=== PATIENT | female | born 1970 | race African-American/Black ===

== ENCOUNTER → 2017-03-06 19:35 | Outpatient (CLI) | payer OTHER ==
[2010-10-16 09:06] VITALS: BMI 36.1
== END | disposition home or self-care (01) ==
LOC: D.SLEEP 02-11 20:00
DX: G47.33 Obstructive sleep apnea (adult) (pediatric) (principal)

== ENCOUNTER 2017-03-28 19:57 | Emergency (ER) | payer OTHER ==
[2010-10-16 09:06] VITALS: BMI 36.1
[2017-03-28 20:29] LABS: BASOPHILS 0.4 % (0-2); EOSINOPHILS 2.8 % (0-7); HEMATOCRIT 36.3 % (36.0-48.0); HEMOGLOBIN 12.9 g/dL (12-16); IMMATURE GRANULOCYTES 0.1 % (0-5); LYMPHOCYTES 46.8 % (15-50); MCH 32.6 pg (26.0-34.0); MCHC 35.5 g/dL (31.0-37.0); MCV 91.7 fL (80.0-100.0); MEAN PLATELET VOLUME 9.9 fL (7.4-10.4); NEUTROPHILS 43.9 % (40-80); PLATELET COUNT 291 10x3/uL (130-400); RBC 3.96 10x6/uL (4.00-5.40); RDW 12.4 % (11.5-14.5); WBC 6.7 10x3/uL (4.8-10.8)
[2017-03-28 21:08] LABS: ALBUMIN 3.5 g/dL (3.4-5.0); BILIRUBIN - TOTAL 0.38 mg/dL (0.2-1.3); CALCIUM 9.6 mg/dL (8.5-10.1); CARBON DIOXIDE 29.7 mmol/L (21.0-32.0); CREATININE - SERUM 1.1 mg/dL (0.6-1.3); POTASSIUM - SERUM 3.7 mmol/L (3.5-5.1); PROTEIN - SERUM 7.7 g/dL (6.4-8.2)
[2017-03-28 21:22] LABS: APPEARANCE CLEAR (CLEAR); BILIRUBIN NEGATIVE (NEGATIVE); COLOR YELLOW (YELLOW); GLUCOSE NEGATIVE (NEGATIVE); KETONE NEGATIVE (NEGATIVE); LEUKOCYTE ESTERASE NEGATIVE (NEGATIVE); NITRITE NEGATIVE (NEGATIVE); PROTEIN NEGATIVE (NEGATIVE); SPECIFIC GRAVITY 1.015 (1.005-1.020); UROBILINOGEN NORMAL (NORMAL)
== END 2017-03-28 21:48 | disposition home or self-care (01) ==
LOC: D.ER 19:57
PROVIDERS: Emergency Medicine
DX: M54.5 Low back pain (principal); F17.200 Nicotine dependence, unspecified, uncomplicated

== ENCOUNTER 2017-06-01 23:21 | Emergency (ER) | payer OTHER ==
[2010-10-16 09:06] VITALS: BMI 36.1
[2017-06-02 00:08] LABS: HEMATOCRIT 33.5 % (36.0-48.0); HEMOGLOBIN 11.7 g/dL (12-16); MCH 31.9 pg (26.0-34.0); MCHC 34.9 g/dL (31.0-37.0); MCV 91.3 fL (80.0-100.0); MEAN PLATELET VOLUME 9.2 fL (7.4-10.4); NEUTROPHILS 50.4 % (40-80); PLATELET COUNT 262 10x3/uL (130-400); RBC 3.67 10x6/uL (4.00-5.40); RDW 12.8 % (11.5-14.5); WBC 7.4 10x3/uL (4.8-10.8)
[2017-06-02 00:15] LABS: ALBUMIN 3.4 g/dL (3.4-5.0); ANION GAP 9.9 mmol/L (8-16); BILIRUBIN - TOTAL 0.52 mg/dL (0.2-1.3); CALCIUM 9.3 mg/dL (8.5-10.1); CARBON DIOXIDE 30.6 mmol/L (21.0-32.0); POTASSIUM - SERUM 3.5 mmol/L (3.5-5.1); PROTEIN - SERUM 7.2 g/dL (6.4-8.2)
[2017-07-24] MEDS ORDERED: BENTYL 20 MG TA20 MG PO (12:27)
[2017-07-24] MEDS ORDERED: CHLORTHALIDONE25 MG PO (12:27)
[2017-07-24] MEDS ORDERED: NORVASC10 MG PO (12:27)
[2017-07-24] MEDS ORDERED: LOTENSIN20 MG PO (12:27)
[2017-07-24] MEDS ORDERED: HCTZ25 MG PO (12:27)
[2017-07-24] MEDS ORDERED: PROAIR HFA8.5 GM INH (12:28)
[2017-07-24] MEDS ORDERED: SINGULAIR10 MG PO (12:28)
[2017-07-24] MEDS ORDERED: LOSARTAN POTASS25 MG PO (12:28)
[2017-07-24] MEDS ORDERED: QVAR8.7 G1 INH (12:28)
[2017-07-24] MEDS ORDERED: CELEXA40 MG PO (12:29)
[2017-07-24] MEDS ORDERED: SYNTHROID88 MCG PO (12:29)
[2017-07-25 07:16] VITALS: BMI 40.0
== END 2017-06-02 02:09 | disposition home or self-care (01) ==
LOC: D.ER 23:21
PROVIDERS: Physician Assistant Medical
DX: R10.9 Unspecified abdominal pain (principal)

== ENCOUNTER 2017-07-25 05:22 | Day surgery (SDC) | payer OTHER ==
[2017-07-24 13:14] LABS: HEMATOCRIT 36.3 % (36.0-48.0); HEMOGLOBIN 12.9 g/dL (12-16); MCH 32.5 pg (26.0-34.0); MCHC 35.5 g/dL (31.0-37.0); MCV 91.4 fL (80.0-100.0); MEAN PLATELET VOLUME 9.6 fL (7.4-10.4); RBC 3.97 10x6/uL (4.00-5.40); RDW 12.1 % (11.5-14.5); WBC 5.6 10x3/uL (4.8-10.8)
[~2017-07-25] VITALS: Ht 170.2 cm; Wt 115.7 kg
--- NOTE | ~2017-07-25 | OP ---
PATIENT NAME: JULIANA GUERRA MEDICAL RECORD: [id number] :66 LOCATION:[facility] ADMISSION DATE: SURGEON: MELONIE TERAN MD DATE OF OPERATION: 07/25/2017 PREOPERATIVE DIAGNOSES: Medial meniscus tear of the right knee and right hip, right hip pain. POSTOPERATIVE DIAGNOSIS: Medial meniscus tear of the right knee and right hip. PROCEDURE: 1. Arthroscopic partial medial meniscectomy of the right knee. 2. Fluoroscopic guided right hip injection. SURGEON: Melonie Teran MD ANESTHESIA: General. INTRAOPERATIVE COMPLICATIONS: None. SUMMARY OF PATHOLOGIC FINDINGS: Consistent with preoperative diagnosis. She has a complex tear of the posterior horn of medial meniscus. OPERATIVE SUMMARY IN DETAIL: After obtaining the appropriate preoperative orthopedic surgery consent as well as anesthetic consultation, evaluation, and clearance, the patient was brought to the operating room and placed on the operating table in supine position. After adequate general endotracheal anesthesia was administered, the right hip was prepped and draped in routine sterile fashion. Fluoroscopy was brought and under fluoroscopic guidance, the right hip was injected with little degree of difficulty. Having completed this, the patient's right lower extremity was prepared with tourniquet about the proximal aspect. The right lower extremity was then prepped and draped in routine sterile fashion. Leg was elevated and exsanguinated, tourniquet inflated to 350 mmHg. Routine inferolateral portal was established followed by superomedial portal and inferomedial portal. 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 Mild chondromalacia was seen in the medial compartment as well as the lateral compartment; however, the patient did have a complex tear of the posterior horn of medial meniscus. Combination of a meniscotome as well as a full radius resector were utilized to debride the medial meniscus back to stable meniscal elements with good residual meniscus. The leg was then placed in the [id number] position. The lateral compartment had only one area of minimal grade II chondromalacia. Having completed this, the knee was insufflated with 30 cc of 0.25% Marcaine with epinephrine and 40 mg of Depo-Medrol. Arthroscopy portals were closed in routine interrupted fashion using 4-0 Prolene. Sterile dressings were applied. The patient was awakened and taken to the recovery room in stable condition. All final needle and sponge counts were correct. TRANSINT:[id number] Voice Confirmation ID: [id number] DOCUMENT ID: [id number] OPERATIVE REPORT [id number] JULIANA GUERRA MD, MELONIE DEY at 1641 CC: [id number] DICTATION DATE: 07/25/17 1045 PLANT DIRECTOR: 07/25/17 1223 [facility] [place] [id number] [place] [id number]
[~2017-07-25 05:22] MED LIST: BENTYL 20 MG TA20 MG PO; CELEXA40 MG PO; CHLORTHALIDONE25 MG PO; HCTZ25 MG PO; LOSARTAN POTASS25 MG PO; LOTENSIN20 MG PO; NORVASC10 MG PO; PROAIR HFA8.5 GM INH; QVAR8.7 G1 INH; SINGULAIR10 MG PO; SYNTHROID88 MCG PO
[2017-07-25 07:16] VITALS: BP 159/95; Ht 170.2 cm; Wt 115.7 kg
[2017-07-25] MEDS ORDERED: HYDROCODONE-APA1 TAB PO (10:41)
== END 2017-07-25 16:30 | disposition home or self-care (01) ==
LOC: D.OPS 05:22 → D.PAN 09:15 → D.OPS 10:00 → D.PAN 10:30 → D.OPS 16:30
PROVIDERS: Anesthesiology
DX: S83.231A Complex tear of medial meniscus, current injury, right knee, initial encounter (principal); M25.551 Pain in right hip; Z01.812 Encounter for preprocedural laboratory examination; X58.XXXA Exposure to other specified factors, initial encounter

== ENCOUNTER 2018-05-15 07:57 | Emergency (ER) | payer OTHER ==
[~2018-05-15] VITALS: Ht 170.2 cm; Wt 113.6 kg
[~2018-05-15 07:57] MED LIST changes: +HYDROCODONE-APA1 TAB PO
[2018-05-15 08:02] VITALS: Ht 170.2 cm; Wt 113.6 kg
[2018-05-15 09:17] LABS: BASOPHILS 0.6 % (0-2); EOSINOPHILS 1.2 % (0-7); HEMATOCRIT 35.3 % (36.0-48.0); HEMOGLOBIN 12.4 g/dL (12-16); IMMATURE GRANULOCYTES 0.2 % (0-5); LYMPHOCYTES 41.5 % (15-50); MCH 32.5 pg (26.0-34.0); MCHC 35.1 g/dL (31.0-37.0); MCV 92.4 fL (80.0-100.0); MEAN PLATELET VOLUME 10.2 fL (7.4-10.4); MONOCYTES 7.6 % (2-11); NEUTROPHILS 48.9 % (40-80); PLATELET COUNT 254 10x3/uL (130-400); RBC 3.82 10x6/uL (4.00-5.40); RDW 12.5 % (11.5-14.5); WBC 4.8 10x3/uL (4.8-10.8)
[2018-05-15 09:31] LABS: ALBUMIN 3.5 g/dL (3.4-5.0); ANION GAP 10.3 mmol/L (8-16); BILIRUBIN - TOTAL 0.49 mg/dL (0.2-1.3); CALCIUM 9.1 mg/dL (8.5-10.1); CARBON DIOXIDE 29.9 mmol/L (21.0-32.0); POTASSIUM - SERUM 3.2 mmol/L (3.5-5.1); PROTEIN - SERUM 7.3 g/dL (6.4-8.2)
[2018-05-15] MEDS ORDERED: IBUPROFEN800 MG PO (12:29)
[2018-05-15] MEDS ORDERED: ACETAMINOPHEN500 M1 PO (12:29)
[2018-05-15] MEDS ORDERED: CYCLOBENZAPRINE10 MG PO (12:29)
[2018-05-15 13:09] VITALS: BP 135/64
== END 2018-05-15 13:13 | disposition home or self-care (01) ==
LOC: D.ER 07:57
PROVIDERS: Family Medicine
DX: M79.604 Pain in right leg (principal); E07.9 Disorder of thyroid, unspecified; I10 Essential (primary) hypertension

== ENCOUNTER 2019-07-04 15:55 | Emergency (ER) | payer BC ==
[~2019-07-04] VITALS: Ht 170.2 cm; Wt 112.7 kg
[~2019-07-04 15:55] MED LIST changes: +ACETAMINOPHEN500 M1 PO; +CYCLOBENZAPRINE10 MG PO; +IBUPROFEN800 MG PO
[2019-07-04 16:27] VITALS: Ht 170.2 cm; Wt 112.7 kg
[2019-07-04 19:06] VITALS: BP 153/90
== END 2019-07-04 19:07 | disposition home or self-care (01) ==
LOC: D.ER 15:55
DX: I10 Essential (primary) hypertension (principal); M79.672 Pain in left foot; G62.9 Polyneuropathy, unspecified; E07.9 Disorder of thyroid, unspecified

== ENCOUNTER → 2020-01-04 11:56 | Outpatient (CLI) | payer BC ==
[2019-07-04 16:27] VITALS: BMI 38.9
== END | disposition home or self-care (01) ==
LOC: D.LABREF 11:56
PROVIDERS: ATTEND Podiatrist
DX: Z11.59 Encounter for screening for other viral diseases (principal)

== ENCOUNTER 2020-01-06 06:10 | Day surgery (SDC) | payer BC ==
[2020-01-04 09:30] LABS: HEMATOCRIT 37.8 % (36.0-48.0); MCH 31.7 pg (26.0-34.0); MCHC 34.4 g/dL (31.0-37.0); MCV 92.2 fL (80.0-100.0); MEAN PLATELET VOLUME 9.4 fL (7.4-10.4); RBC 4.1 10x6/uL (4.00-5.40); RDW 12.5 % (11.5-14.5); WBC 5.5 10x3/uL (4.8-10.8)
[2020-01-04 10:01] LABS: ANION GAP 9.3 mmol/L (8-16); CALCIUM 9.3 mg/dL (8.5-10.1); CARBON DIOXIDE 30.1 mmol/L (21.0-32.0); CREATININE - SERUM 1.1 mg/dL (0.6-1.3); POTASSIUM - SERUM 3.4 mmol/L (3.5-5.1)
[~2020-01-06] VITALS: Ht 170.2 cm; Wt 120.2 kg
--- NOTE | ~2020-01-06 | OP ---
PATIENT NAME: JULIANA GUERRA MEDICAL RECORD: [id number] :68 LOCATION:[facility] ADMISSION DATE: SURGEON: LAKESHA DWEITT DPM DATE OF OPERATION: 01/06/2020 PREOPERATIVE DIAGNOSES: Enlarged navicular with accessory bone, left foot and posterior tibial tendonitis. POSTOPERATIVE DIAGNOSES: Enlarged navicular with accessory bone, left foot and posterior tibial tendonitis. PROCEDURE: Kitner, left foot. ANESTHESIA: Preoperative popliteal block per the anesthesia department as well as intraoperative injection of 10 cc of Marcaine plain around the medial ankle for the saphenous nerve, as well as intraoperative general anesthesia. HEMOSTASIS: Left thigh tourniquet at 350 mmHg. PREOPERATIVE DETAILS: The patient was taken to the OR and placed on the operating table in a supine position followed by induction of general anesthesia. The left extremity was then prepped and draped in the usual aseptic technique followed by elevation of extremity and inflation of tourniquet. A 10 cc of local anesthetic was then infiltrated around the saphenous nerve and the medial ankle of the left foot. PROCEDURE IN DETAIL: Kitner, left foot; A 15-blade was used to create an incision from the medial malleolus distally to the insertion of the posterior tibial tendon and navicular. The incision was deepened down through subcutaneous tissue. Dissection was carried down to the retinaculum and tendon sheath, which was incised sharply. It was noted to be upon initial inspection of the posterior tibial tendon quite a bit of synovitis just prior to its insertion. This was removed sharply. At this time, dissection was carried down through the posterior tibial tendon in a longitudinal fashion exposing the medial navicular as well as the accessory bone. The accessory bone was removed sharply. The enlarged navicular was taken down with a rongeur and smoothed with a bone rasp. The wound was flushed. At this time, Arthrex tendon anchor was placed in the navicular with 4 suture threads coming out of the needle. The posterior tibial tendon was then rigidly fixated to the navicular. Excellent rigidity was noted and range of motion showed that the attachment was excellent. A 2-0 Vicryl was then used to augment the repair suturing the rest of the insertion of the posterior tibial tendon to the surrounding structures. The wound was flushed. The retinaculum as well as the tendon sheath were repaired with 2-0 Vicryl. The subcutaneous tissue was reapproximated with 4-0 Rapide and the skin was closed with 4-0 Rapide in a subcuticular technique followed by Dermabond. Adaptic, 4 x 4 and Conform were used to dress the wound followed by application of a modified Gerard compression dressing. The tourniquet was deflated. POSTOPERATIVE DETAILS: The patient tolerated the procedure well and left the OR with vital signs stable and vascular status at preoperative levels. The patient was transported to recovery per anesthesia in stable condition. 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
[2020-01-06 07:29] VITALS: BP 158/81; Ht 170.2 cm; Wt 120.2 kg
== END 2020-01-06 11:05 | disposition home or self-care (01) ==
LOC: D.OPS 06:10
PROVIDERS: Anesthesiology; ATTEND Podiatrist
DX: Q79.9 Congenital malformation of musculoskeletal system, unspecified (principal); M76.822 Posterior tibial tendinitis, left leg; J45.909 Unspecified asthma, uncomplicated; I10 Essential (primary) hypertension; R06.02 Shortness of breath; K21.9 Gastro-esophageal reflux disease without esophagitis

== ENCOUNTER 2020-03-17 10:50 | Emergency (ER) | payer OTHER ==
[~2020-03-17] VITALS: Ht 170.2 cm; Wt 120.5 kg
[2020-03-17 10:57] VITALS: Ht 170.2 cm; Wt 120.5 kg
[2020-03-17] MEDS ORDERED: PEPCID40 MG PO (11:02)
[2020-03-17] MEDS ORDERED: ZYRTEC10 MG PO (11:02)
[2020-03-17 11:49] LABS: ANION GAP 6.3 mmol/L (8-16); CALCIUM 9.5 mg/dL (8.5-10.1); CARBON DIOXIDE 32.1 mmol/L (21.0-32.0); CREATININE - SERUM 1.2 mg/dL (0.6-1.3); POTASSIUM - SERUM 3.4 mmol/L (3.5-5.1)
[2020-03-17 11:55] LABS: BILIRUBIN - TOTAL 0.66 mg/dL (0.2-1.3); PROTEIN - SERUM 8.2 g/dL (6.4-8.2)
[2020-03-17 12:01] LABS: APTT 25.5 SECONDS (22.8-39.4); INR 0.91 (0.85-1.17); PROTIME 12.2 SECONDS (11.6-15.0)
[2020-03-17 12:06] LABS: BASOPHILS 0.8 % (0-2); EOSINOPHILS 1.8 % (0-7); HEMOGLOBIN 13.8 g/dL (12-16); IMMATURE GRANULOCYTES 0.2 % (0-5); LYMPHOCYTES 44.3 % (15-50); MCH 31.6 pg (26.0-34.0); MCHC 34.5 g/dL (31.0-37.0); MCV 91.5 fL (80.0-100.0); MEAN PLATELET VOLUME 9.9 fL (7.4-10.4); MONOCYTES 6.4 % (2-11); NEUTROPHILS 46.5 % (40-80); PLATELET COUNT 324 10x3/uL (130-400); RBC 4.37 10x6/uL (4.00-5.40); RDW 12.4 % (11.5-14.5); WBC 6.1 10x3/uL (4.8-10.8)
[2020-03-17 13:37] VITALS: BP 177/115
== END 2020-03-17 13:37 | disposition home or self-care (01) ==
LOC: D.ER 10:50
PROVIDERS: Family Medicine
DX: S16.1XXA Strain of muscle, fascia and tendon at neck level, initial encounter (principal); I10 Essential (primary) hypertension; J45.909 Unspecified asthma, uncomplicated; G62.9 Polyneuropathy, unspecified; R51 Headache; M54.2 Cervicalgia; R53.81 Other malaise; M62.838 Other muscle spasm; V89.2XXA Person injured in unspecified motor-vehicle accident, traffic, initial encounter; Y93.9 Activity, unspecified; Y92.9 Unspecified place or not applicable

== ENCOUNTER → 2020-10-12 11:03 | Outpatient (CLI) | payer BC ==
[2020-03-17 10:57] VITALS: BMI 41.6
[~2020-10-12 11:03] MED LIST changes: +PEPCID40 MG PO; +ZYRTEC10 MG PO
== END | disposition home or self-care (01) ==
LOC: D.CT 11:00
PROVIDERS: ATTEND Internal Medicine Pulmonary Disease
DX: R91.1 Solitary pulmonary nodule (principal)

== ENCOUNTER → 2020-10-31 13:13 | Outpatient (CLI) | payer BC | END | disposition home or self-care (01) | LOC: D.RAD 13:13 | DX: J18.9 Pneumonia, unspecified organism (principal) ==

== ENCOUNTER 2020-11-09 10:02 | Day surgery (SDC) | payer BC, OTHER ==
[~2020-11-09] VITALS: Ht 170.2 cm; Wt 120.5 kg
[2020-11-09 10:25] LABS: BASOPHILS 0.5 % (0-2); EOSINOPHILS 1.8 % (0-7); HEMATOCRIT 37.2 % (36.0-48.0); HEMOGLOBIN 12.6 g/dL (12-16); IMMATURE GRANULOCYTES 0.3 % (0-5); LYMPHOCYTE ABS# 2.56 10x3/uL (1.18-3.74); LYMPHOCYTES 42.7 % (15-50); MCH 31.5 pg (26.0-34.0); MCHC 33.9 g/dL (31.0-37.0); MEAN PLATELET VOLUME 9.4 fL (7.4-10.4); MONOCYTES 6.7 % (2-11); NEUTROPHIL ABS# 2.87 10x3/uL (1.56-6.13); PLATELET COUNT 294 10x3/uL (130-400); RDW 12.6 % (11.5-14.5)
[2020-11-09 11:00] LABS: INR 1.02 (0.85-1.17); PROTIME 12.4 SECONDS (11.6-15.0)
[2020-11-09 11:01] LABS: APTT 27.8 SECONDS (22.8-39.4)
[2020-11-09 11:14] VITALS: Ht 170.2 cm; Wt 120.5 kg
[2020-11-09] MEDS ORDERED: PROPRANOLOL HCL20 MG (11:20)
--- NOTE | 2020-11-09 12:14 | NUR ---
90.7 SECONDS FLURO TIME.
--- NOTE | 2020-11-09 12:47 | NUR ---
CARE TRANSFERRED TO HELEN JOHN RN REPORT GIVEN
[2020-11-09 18:10] LABS: EOS BF 3 %; MACROPHAGES BF 49 %; MESOTHELIALS BF 34 %; NEUT - BF 3 %
[2020-11-10 17:08] LABS: ACID FAST SMEAR Negative (()); AFB SPECIMEN PROCESSING Concentration (())
[2020-11-11 13:11] LABS: FUNGUS STAIN Final report (())
== END 2020-11-09 14:15 | disposition home or self-care (01) ==
LOC: D.OPS 10:02
PROVIDERS: ATTEND Internal Medicine Pulmonary Disease
DX: J18.9 Pneumonia, unspecified organism (principal); R06.02 Shortness of breath; R05 Cough; K21.9 Gastro-esophageal reflux disease without esophagitis; J45.909 Unspecified asthma, uncomplicated; R91.1 Solitary pulmonary nodule; J30.9 Allergic rhinitis, unspecified; T78.49XD Other allergy, subsequent encounter; G47.33 Obstructive sleep apnea (adult) (pediatric); I10 Essential (primary) hypertension; K76.0 Fatty (change of) liver, not elsewhere classified; E66.9 Obesity, unspecified

== ENCOUNTER → 2020-12-07 07:58 | Outpatient (CLI) | payer BC ==
[2020-11-09 11:14] VITALS: BMI 41.6
[~2020-12-07 07:58] MED LIST changes: +PROPRANOLOL HCL20 MG
== END | disposition home or self-care (01) ==
LOC: D.CT 07:58
PROVIDERS: ATTEND Internal Medicine Pulmonary Disease
DX: J18.9 Pneumonia, unspecified organism (principal)